=== PATIENT | female | born 1940 | race Caucasian/White ===

== ENCOUNTER 2016-06-10 17:40 | Emergency (ER) | payer MEDICARE ==
[~2016-06-10] VITALS: Ht 154.9 cm; Wt 47.0 kg
[2016-06-10 17:46] VITALS: BP 150/69; PULSE 89; RESP 16; O2SAT 98
--- NOTE | 2016-06-10 18:16 | ED.REPORT ---
HPI-Chest Pain 40 and Over Date of Service Jun 10, 2016 ED Provider: Jatin Ramos MD History of Present Illness: Actual complaint is palpitations, there is no template for palpitations in this system-so this template was used. The patient is a 76 year old female who presents to the ED due to intermittent heart palpitations onset 2 days ago. She says that it feels like her heart is racing in episodes lasting no more then 5 minutes. Exertion does not increase her symptoms. She was recently put on new medication for high blood pressure. The pt was previously on Lisinopril (30 + 20) and atenolol. Due to bradycardia, she was taken off atenolol and a reduced dosage of Lisinopril. She denies chest pain, SOB, le edema and diaphoresis. No hx of heart attacks, DC, or blood clots. Nursing Notes Stated Complaint: PAPITATIONS Chief Complaint: Dysrhythmia/Cardiac Nursing Notes Reviewed: Yes ([facility], meds not reconciled) Allergies: Coded Allergies: Cephalosporins (Verified Allergy, Unknown, 06/10/16) Contrast Media (Unverified Allergy, Unknown, 06/10/16) Patient reports being allergic to Conray 400 IVP dye. Penicillins (Verified Allergy, Unknown, 06/10/16) Sulfa (Sulfonamide Antibiotics) (Verified Allergy, Unknown, 06/10/16) clindamycin (Verified Allergy, Unknown, 06/10/16) codeine (Verified Allergy, Unknown, 06/10/16) meperidine (Verified Allergy, Unknown, 06/10/16) Uncoded Allergies: LOTHALAMAT (Allergy, Unknown, 06/10/16) ZOSTAVAX (Allergy, Unknown, 06/10/16) General Time Seen by MD: 18:13 Chief Complaint Other (intermittent heart palpatations ) Hx Obtained From: Patient Arrived By: Walk-in Sudden in Onset?: Yes Onset Occurred: 1 - 4 hours ago Symptom Duration: Since onset Location: : Chest left Radiation: : Does not radiate Severity: Current: No pain currently Past Medical History Past Medical History HTN Past Surgical History Reports: Hysterectomy Smoking History Never Smoker Social History Other Social History: Local resident Ambulatory Status Independent Review of Systems Review of Systems Note: heart palpatations Respiratory: Denies: Shortness of breath Cardiovascular: Denies: Chest pain Musculoskeletal: Denies: Extremity swelling Skin: Denies Diaphoresis Complete sys rev & neg: except as marked. Physical Exam Physical Exam Notes: heary rate 103 normal exam Initial Vital Signs Vital Signs (First) Date Time Temp Pulse Resp B/P Pulse Ox O2 Delivery O2 Flow Rate FiO2 06/10/16 17:46 36.3 89 16 150/69 98 Room Air Initial VS: Reviewed, Vital signs normal (mild HTN) Head / Eyes: Atraumatic, Normocephalic, PERRL ENT: Mucous membranes moist Extremities: Vascular intact, No swelling Skin: Warm, Dry Psychiatric: Mood/affect normal, Behavior normal General/Constitutional: Awake, Alert, Cooperative Respiratory / Chest: Atraumatic, Breath sounds NL, Breath sounds = bilat Cardiovascular: No gallop, No murmurs, No rubs heart rate 103 Abdomen: Atraumatic, Soft, Non-tender Interpretation & Diagnostics Lab Results Interpretation Result Diagram: 06/10/16 18206/10/16 1828 Test 06/10/16 18:28 White Blood Count 5.5th/mm3 (3.8-10.1) Red Blood Count 3.55mil/mm3 (3.90-5.20) Hemoglobin 11.2g/dL (12.0-15.6) Hematocrit 34.0% (35.0-46.0) Mean Corpuscular Volume 95.8fL (81-100) Mean Corpuscular Hemoglobin 31.5pg (27.0-35.0) Mean Corpuscular Hemoglobin Concent 32.9% (32.0-37.0) Red Cell Distribution Width 12.5% (12.3-15.4) Platelet Count 171bil/L (150-400) Neutrophils (%) (Auto) 58.3% (40-74) Lymphocytes (%) (Auto) 27.9% (14-46) Monocytes (%) (Auto) 11.7% (4-12) Eosinophils (%) (Auto) 1.7% (0-5) Basophils (%) (Auto) 0.4% (0-3) Sodium Level 134mEq/L (134-144) Potassium Level 3.9mEq/L (3.5-5.2) Chloride Level 97mEq/L (97-108) Carbon Dioxide Level 23mmol/L (18-29) Blood Urea Nitrogen 12mg/dL (8-27) Creatinine 0.56mg/dL (0.57-1.00) Estimat Glomerular Filtration Rate 151mL/min (>59) Glucose Level 110mg/dL (60-99) Calcium Level 9.7mg/dL (8.5-10.1) Magnesium Level 1.7mg/dL (1.6-2.6) Total Bilirubin 0.4mg/dL (0.0-1.2) Aspartate Amino Transf (AST/SGOT) 49U/L (0-50) Alanine Aminotransferase (ALT/SGPT) 44U/L (0-32) Alkaline Phosphatase 73U/L (25-165) Total Protein 6.4g/dL (6.4-8.4) Albumin 3.9g/dL (3.4-5.0) Thyroid Stimulating Hormone (TSH) 0.842uIU/mL (0.450-4.500) Hold Mcmahon Top Tube Received (Received) Lab Results Interpretation: CBC normal CMP normal TSH normal ECG Interpretation Time: 18:37 Interpreted by: ED physician Normal ECG Interpretation: Normal sinus rhythm (rate 95) Re-Eval/Medical Decision Med Decision/Clinical Course This is a pleasant 76-year-old female who does not have a prior history of coronary disease, presents with a chief complaint of palpitations that she thinks are secondary to initiation of a new blood pressure amlodipine. The patient is only major history is really high blood pressure for which she was on lisinopril and atenolol, she was noted to have episodes of bradycardia so her medications were changed: Her lisinopril was decreased, and amlodipine was added. She reports she is always had some mild palpitations intermittently, but reports a dramatic change and worsening with the palpitations that she attributes to the amlodipine. She is able to reduce the amlodipine somewhat, but is still having symptoms, and really wants to discontinue it. She has had no kristie anaphylactic symptoms. She has had no chest pain, diaphoresis, syncope , or exertional symptoms. His are a sense of fluttering in the heart, and have not been captured on any significant dysrhythmic event during ED stay. She denies any pain. Patient clinically feels well. Her EKG is normal, she has no exertional component of features really arguing for acute coronary syndrome. Her largest concern is a reaction to the amlodipine, and she is quite definite that her symptoms are related to this. I am not identified any red flags of a dangerous etiology of syncope, or features indicate coronary disease or other pathology to require admission or further testing. I think it is reasonable discontinue the amlodipine, but the plan at this point would be to return her lisinopril to her regular 30 mg in the evening, 20 mg in the a.m. for continued blood pressure control, she brings a list of her heart rates and blood pressures over the past several weeks, and she remains mildly hypertensive. He is entirely comfortable with this. Routine precautions reviewed. She will follow-up with her PCP. Patient is discharged in good condition Source of Hx: Old records Differential Diagnosis: Negative: Acute coronary syndrome, Acute myocardial infarct, Chest pain, Chest pain, acute, Congestive heart failure, Dysrhythmia, Esophageal rupture, Gun shot wound chest, Pleurisy, Pneumomediastinum, Pneumonia , Pneumothorax, Pulmonary edema, Pulmonary embolism, Rib fracture, Stab wound chest Counseled Regarding: Diagnosis, Lab results, Need for follow-up, When/why to return to ED Discharge & Departure Primary Impression: Adverse drug experience Encounter type: initial encounter Qualified Code: T88.7XXA - Unspecified adverse effect of drug or medicament, initial encounter Disposition: Home Discharge Condition All VS Reviewed: Yes Condition: Stable Additional Instructions: 1. Your blood tests were normal. 2. STOP the amlodipine. 3. Increase your lisinopril 20mg in the morning and 30mg at bedtime. 4. Continue to measure her blood pressures routinely, continue to write them down-and bring the records of your blood pressure and heart rates to your next doctor's visit. 5. Return if new or worsening symptoms. Referrals: Bceca Barreto MD (PCP) Scribe Attestation Portion of this note were transcribed by Akila Schumacher. I, Dr. Ramos, personally performed the history, physical exam, and medical decision-making: I reviewed and confirmed the accuracy for the information in the transcribed note. Signed by: yazmin Rebolledo, 06/10/16 2100 copies to: Becca Barreto MD, Matthew F MD Jun 10, 2016 18:16 Akila Schumacher Jun 10, 2016 19:04
[2016-06-10 18:52] LABS: BASOPHILS % (AUTO) 0.4 % (0-3); EOSINOPHILS % (AUTO) 1.7 % (0-5); MONOCYTES % (AUTO) 11.7 % (4-12); Mean Corpuscular Hemoglobin 31.5 pg (27.0-35.0); Mean Corpuscular Volume 95.8 fL (81-100); NEUTROPHILS % (AUTO) 58.3 % (40-74); Platelet Count 171 bil/L (150-400)
[2016-06-10 19:03] LABS: Magnesium 1.7 mg/dL (1.6-2.6)
[2016-06-10 20:04] VITALS: BP 125/76; PULSE 94; RESP 15; O2SAT 97
== END 2016-06-10 20:04 | disposition home or self-care (01) ==
LOC: SED 17:40
DX: T46.4X5A Adverse effect of angiotensin-converting-enzyme inhibitors, initial encounter (principal); X58.XXXA Exposure to other specified factors, initial encounter; Y93.89 Activity, other specified; Y92.89 Other specified places as the place of occurrence of the external cause; Y99.8 Other external cause status; I10 Essential (primary) hypertension; Z88.0 Allergy status to penicillin; Z88.1 Allergy status to other antibiotic agents; Z88.2 Allergy status to sulfonamides; Z88.5 Allergy status to narcotic agent; Z88.8 Allergy status to other drugs, medicaments and biological substances
CPT/HCPCS: 36415; 80053; 83735; 84443; 85025; 93005; 99284; G0463